=== PATIENT | female | born 1995 | race Caucasian/White ===

== ENCOUNTER 2018-06-23 07:12 | Emergency (ER) | payer OTHER ==
[~2018-06-23] VITALS: Ht 170.2 cm; Wt 97.1 kg
[2018-06-23 07:26] VITALS: Ht 170.2 cm; Wt 97.1 kg
[2018-06-23 08:23] LABS: BASOPHIL % 0.1 % (0-2); PLATELET COUNT 294 x10^3mcL (130-400); RED CELL DISTRIBUTION WIDTH 13.7 % (11.5-14.5)
[2018-06-23 08:31] LABS: CALCIUM 8.9 mg/dL (8.5-10.1); CARBON DIOXIDE 27.2 mmol/L (21-32); CHLORIDE SERUM 105 mmol/L (98-107); CREATININE SERUM 0.8 mg/dL (0.6-1.0); GFR1 > 60 mL/min; GLUCOSE SERUM 94 mg/dL (74-106); POTASSIUM SERUM 4.2 mmol/L (3.5-5.1); SODIUM SERUM 138 mmol/L (136-145)
[2018-06-23 08:35] LABS: ALBUMIN 3.8 g/dL (3.4-5.0); ALKALINE PHOSPHATASE 86 U/L (46-116); ALT/SGPT 21 U/L (14-59); AST/SGOT 17 U/L (15-37); BILIRUBIN TOTAL 1.34 mg/dL (0.20-1.00); LIPASE 165 IU/L (73-393); TOTAL PROTEIN, SERUM 7.8 g/dL (6.4-8.2)
[2018-06-23 08:40] VITALS: BP 98/71
== END 2018-06-23 09:29 | disposition home or self-care (01) ==
LOC: ED 07:12
PROVIDERS: Emergency Medicine
DX: B34.9 Viral infection, unspecified (principal); Z98.890 Other specified postprocedural states
CPT/HCPCS: J2405; J7030

== ENCOUNTER 2018-07-10 11:34 | Emergency (ER) | payer OTHER ==
[~2018-07-10] VITALS: Ht 170.2 cm; Wt 96.8 kg
[2018-07-10 11:45] VITALS: Ht 170.2 cm; Wt 96.8 kg
[2018-07-10 12:23] LABS: BASOPHIL % 0.4 % (0-2); PLATELET COUNT 279 x10^3mcL (130-400); RED CELL DISTRIBUTION WIDTH 13.8 % (11.5-14.5)
[2018-07-10 12:32] LABS: AMPHETAMINE QUAL UR NONE DETECTED (See below)
[2018-07-10 12:33] LABS: CALCIUM 8.8 mg/dL (8.5-10.1); CARBON DIOXIDE 26.4 mmol/L (21-32); CHLORIDE SERUM 104 mmol/L (98-107); CREATININE SERUM 0.9 mg/dL (0.6-1.0); GFR1 > 60 mL/min; GLUCOSE SERUM 99 mg/dL (74-106); POTASSIUM SERUM 3.5 mmol/L (3.5-5.1); SODIUM SERUM 141 mmol/L (136-145)
[2018-07-10 12:37] LABS: ALKALINE PHOSPHATASE 102 U/L (46-116); ALT/SGPT 21 U/L (14-59); AST/SGOT 17 U/L (15-37); BILIRUBIN TOTAL 1.01 mg/dL (0.20-1.00); CHOLESTEROL 164 mg/dL (<200); HDL CHOLESTEROL 44 mg/dL (40-60); TOTAL PROTEIN, SERUM 8.1 g/dL (6.4-8.2)
[2018-07-10 12:47] LABS: FREE T4 1.08 ng/dL (0.76-1.46); FREE THYROXINE INDEX 2.9 ug/dL (1.4-4.5); T4(THYROXINE) 9.3 ug/dL (4.7-13.3)
[2018-07-10 15:04] VITALS: BP 110/70
[2018-07-11 07:53] LABS: T3 TOTAL 1.23 ng/mL
== END 2018-07-10 15:00 | disposition home or self-care (01) ==
LOC: ED 11:34
PROVIDERS: Emergency Medicine
DX: R55 Syncope and collapse (principal); R42 Dizziness and giddiness; R25.1 Tremor, unspecified; Z98.890 Other specified postprocedural states
CPT/HCPCS: 82962; 84439; J7030

== ENCOUNTER 2018-08-07 05:50 | Emergency (ER) | payer OTHER ==
[~2018-08-07] VITALS: Ht 170.2 cm; Wt 96.2 kg
[2018-08-07 06:04] VITALS: Ht 170.2 cm; Wt 96.2 kg
[2018-08-07 07:07] LABS: BASOPHIL % 0.2 % (0-2); PLATELET COUNT 241 x10^3mcL (130-400); RED CELL DISTRIBUTION WIDTH 12.3 % (11.5-14.5)
[2018-08-07 07:30] LABS: FREE T4 1.18 ng/dL (0.76-1.46); FREE THYROXINE INDEX 3.1 ug/dL (1.4-4.5); T4(THYROXINE) 9.5 ug/dL (4.7-13.3)
[2018-08-07 07:33] LABS: CK-MB < 0.5 ng/mL (0-3.6); CREATINE KINASE 42 U/L (26-192)
[2018-08-07 07:38] LABS: CARBON DIOXIDE 21.3 mmol/L (21-32); CHLORIDE SERUM 101 mmol/L (98-107); CREATININE SERUM 0.9 mg/dL (0.6-1.0); GFR1 > 60 mL/min; GLUCOSE SERUM 106 mg/dL (74-106); POTASSIUM SERUM 3.2 mmol/L (3.5-5.1); SODIUM SERUM 135 mmol/L (136-145)
[2018-08-07 07:43] LABS: ALBUMIN 3.7 g/dL (3.4-5.0); ALKALINE PHOSPHATASE 81 U/L (46-116); ALT/SGPT 18 U/L (14-59); AST/SGOT 16 U/L (15-37); BILIRUBIN TOTAL 0.8 mg/dL (0.20-1.00); C REACTIVE PROTEIN 2.8 mg/dL (<=0.9); T3 TOTAL 1.25 ng/mL; TOTAL PROTEIN, SERUM 7.7 g/dL (6.4-8.2)
[2018-08-07 08:09] LABS: UA SPECIFIC GRAVITY >=1.030 (1.005-1.035); microscopic required? YES; urine erythrocyte 1+ (NEGATIVE)
[2018-08-07 08:21] VITALS: BP 105/69
[2018-08-07 09:36] LABS: ERYTHROCYTE SED RATE 24 mm/hr (0-20)
== END 2018-08-07 09:09 | disposition home or self-care (01) ==
LOC: ED 05:50
PROVIDERS: Specialist
DX: J10.1 Influenza due to other identified influenza virus with other respiratory manifestations (principal); R07.89 Other chest pain; Z98.890 Other specified postprocedural states
CPT/HCPCS: 36600; 84439; 87804; J1885; Q0092

== ENCOUNTER 2018-10-06 10:15 | Emergency (ER) | payer OTHER ==
[~2018-10-06] VITALS: Ht 170.2 cm; Wt 97.1 kg
[2018-10-06 10:30] VITALS: BP 116/79; Ht 170.2 cm; Wt 97.1 kg
== END 2018-10-06 11:43 | disposition home or self-care (01) ==
LOC: ED 10:15
DX: F41.9 Anxiety disorder, unspecified (principal); Z98.890 Other specified postprocedural states

== ENCOUNTER 2018-10-30 02:40 | Emergency (ER) | payer OTHER ==
[~2018-10-30] VITALS: Ht 170.2 cm; Wt 98.4 kg
[2018-10-30 02:44] VITALS: Ht 170.2 cm; Wt 98.4 kg
[2018-10-30 03:49] LABS: BASOPHIL % 0.7 % (0-2); PLATELET COUNT 263 x10^3mcL (130-400); RED CELL DISTRIBUTION WIDTH 13.9 % (11.5-14.5)
[2018-10-30 05:08] VITALS: BP 111/63
== END 2018-10-30 05:08 | disposition home or self-care (01) ==
LOC: ED 02:40
PROVIDERS: Emergency Medicine
DX: R10.13 Epigastric pain (principal); F41.9 Anxiety disorder, unspecified; Z98.890 Other specified postprocedural states
CPT/HCPCS: 36415